=== PATIENT | female | born 1995 | race Caucasian/White ===

== ENCOUNTER 2025-05-27 17:48 | Observation (INO) | payer BC, SELFPAY ==
[2025-05-27 17:49] VITALS: BP 131/84; PULSE 73; RESP 18; TEMP 36.6; O2SAT 98
--- NOTE | 2025-05-27 18:15 | RT.EKG_ITS ---
APPROVED REPORT Exam: Resting ECG Reason for Exam: baseline screening Patient Location: E HR:75 bpm ECG Measurements Heart Rate 75 AXIS MN 149 P 45 QRSd 89 QRS 45 QT 373 T 18 QTc 416 Conclusion Sinus rhythm, rate 75 No interval abnormalities No STEMI No priors available for comparison
--- NOTE | 2025-05-27 18:16 | W.ED.GENAD ---
Discharge Plan Disposition Patient Disposition: Admit to [facility] Condition: Stable Discharge Details Clinical Impression: Acute pancreatitis Primary Care Provider: Harinder Stallworth ED Provider: Omi Weber Home Meds and New Rx's Prescriptions: No Action estradiol 1 mg tablet 1 mg PO DAILY Rx Instructions: off 1 week; repeat cycle meloxicam 15 mg tablet 15 mg PO DAILY methocarbamol 500 mg tablet 500 mg PO TID HPI General Date/Time Provider Initiated Documentation: 05/27/25 18:02. HPI Narrative: 29 year-old female presents to ED today by POV/ambulating with her boyfriend with a chief complaint of epigastric abdominal pain with onset last night, worsening today, was at [facility] til 1 pm- went home for a couple hours but pain getting worse. Quality described as severe pain and like a weight on her epigastric area and lower ribs, pain with deep breathing- sharp, no radiation to vomiting- does have nausea, denies black/bloody diarrhea or complete constipation, endorses mild SOB, denies chest pain, denies dizziness or fever. Severity is described as severe. Palliating factors include nothing specific attempted. Provoking factors include nothing specific. Events leading up to the incident/Associated Symptoms: Patient denies history of abdominal surgical procedures. Patient not anticoagulated. Related Data Home Medications ?Medication ?Instructions ?Recorded ?Confirmed estradiol 1 mg tablet 1 mg PO DAILY 05/27/25 05/27/25 meloxicam 15 mg tablet 15 mg PO DAILY 05/27/25 05/27/25 methocarbamol 500 mg tablet 500 mg PO TID 05/27/25 05/27/25 Allergies Allergy/AdvReac Type Severity Reaction Status Date / Time No Known Allergies Allergy Unverified 05/27/25 17:55 General Stated Complaint: Abd Prob OMARI: 3 Review of Systems All systems reviewed & are unremarkable except as noted in HPI and below Exam Narrative Exam Narrative: GENERAL APPEARANCE: Well-nourished, non-toxic, awake and alert, atraumatic, moderate acute distress. SKIN: Warm, pink, dry, intact, without rashes/lesions/ulcerations. HEAD: Normocephalic, atraumatic, normal hair distribution for gender/age. EYES: Normal conjunctiva, no exudates on lids/lashes. ENT: Nares patent, no circumoral cyanosis, no facial swelling NECK: Supple, trachea midline, painless cervical ROM. LUNGS/CHEST: Lungs CTA bilaterally- no rhonchi/rales/wheezes diffusely, non-labored respirations, normal A/P diameter, symmetrical expansion, no chest wall deformity, mild tenderness to bilat lower ribs without crepitus HEART (CV/PV): Regular rate and rhythm without murmur, no peripheral edema, no JVD. ABDOMEN: Soft, non-distended, no guarding, epigastric tenderness with + Mcmullen's sign, LUQ tenderness, no CVA tenderness to percussion bilaterally. MSK: Normal ROM, no swelling/deformity to bilateral UEs or LEs, moving all extremities without weakness, no cyanosis, spine midline without tenderness, normal curvature. NEURO: Mental Status AAOx4 - alert to person, place, time, events No facial droop, no forehead involvement. Motor: No focal weakness - strength 5/5 in bilateral UEs and LEs, proximal and distal, symmetric. Sensory: sensation intact to light touch globally. Gait normal: patient ambulated without ataxia into ED room. PSYCH: euthymic, cooperative, pleasant, appropriate speech Course Vital Signs Vital signs: Vital Signs Temperature 36.6 C 05/27/25 17:49 Pulse 73 05/27/25 17:49 Respiratory Rate 18 05/27/25 17:49 Blood Pressure 131/84 05/27/25 17:49 Pulse Oximetry 98 05/27/25 17:49 Temperature 36.6 C 05/27/25 17:49 Pulse 73 05/27/25 17:49 Respiratory Rate 18 05/27/25 17:49 Blood Pressure 131/84 05/27/25 17:49 Pulse Oximetry 98 05/27/25 17:49 Pain Level 8 05/27/25 17:49 Medical Decision Making This dictation utilizes [id number] dictation software and may contain unedited grammatical errors. 29 year-old female presents to ED today by POV/ambulating with her boyfriend with a chief complaint of epigastric abdominal pain with onset last night, worsening today, was at [facility] til 1 pm- went home for a couple hours but pain getting worse. Quality described as severe pain and like a weight on her epigastric area and lower ribs, pain with deep breathing- sharp, no radiation to vomiting- does have nausea, denies black/bloody diarrhea or complete constipation, endorses mild SOB, denies chest pain, denies dizziness or fever. Severity is described as severe. Palliating factors include nothing specific attempted. Provoking factors include nothing specific. Events leading up to the incident/Associated Symptoms: Patient denies history of abdominal surgical procedures. Patients' medical history: Cervicalgia, anxiety, complex regional pain syndrome. Family and social history: Noncontributory. Pertinent exam findings / vital signs include epigastric tenderness, positive Mcmullen sign, left upper quadrant tenderness, no Rovsing's, no CVA tenderness to percussion bilaterally, benign cardiopulmonary exam with pleuritic tenderness in bilateral lower distal ribs without crepitus or flail segment, nontoxic and afebrile Differential / pathologies of concern include biliary colic, pancreatitis, cholangitis, choledocho cystitis, PE, enteritis, gastritis. Diagnostic studies of: - CBC, CMP, D-dimer, lactate, magnesium, troponin, lipase. - CBC shows no leukocytosis, no anemia - Lactate -1.5 - D-dimer negative at 427 - CMP is unremarkable, bilirubin at 1.4 - Magnesium within normal limits - Lipase is acutely elevated to >3000 from a normal value earlier today Interventions of: - 15 mg IVP ketorolac, 4 mg IVP Zofran, 1 g IV Tylenol, 500 mL IVF NS, 0.5 mg IV hydromorphone every 4 hours as needed. - Discussed with Hospitalist Dr. Steiner- agrees for admission at 2049. Dr. Bonner did POCUS of RUQ- does not see any large obstructing stones. Updated General Surgery on-call Dr. Soler of admitted patient likely needing surgical consult at 2051. ED Course/Assessment/Plan: 29-year-old female presents with epigastric pain seen at [facility] with a negative CT they recommend MRCP tomorrow, she was sent home after GI cocktail treatment with worsening pain, her lipase was negative earlier today but is now greater than her upper limit of normal at 3000, POCUS was performed shows no large obstructing stone and her LFTs are normal, she has a possible gallstone pancreatitis in the setting of a definitive acute pancreatitis, likely needs monitoring clear fluid diet and official ultrasound tomorrow morning with possible MRCP tomorrow morning, surgery practice is aware patient admitted to hospitalist service, has received pain control here in the ED and vitals are stable. Disposition of Acute Pancreatitis. Patient verbalized understanding of the plan and return to ED criteria and engaged in shared decision making. Medical Records Medical records reviewed: Yes I reviewed the patient's medical records. Medical records narrative: Reviewed [facility] studies from earlier today, she had a negative CT but they do recommend an MRCP tomorrow, she had some dilatation of the pancreatic duct but no stones were seen. Lab Data Lab results reviewed: Yes I reviewed the patient's lab results. Labs: Laboratory Tests Range/Units 05/27/25 05/27/25 18:58 19:18 WBC (4.4-10.8) 10^3/uL 5.33 RBC (3.93-5.22) 10^6/uL 3.93 Hgb (11.2-15.7) g/dL 12.7 Hct (36.0-46.0) % 37.3 MCV (80-95) fL 95 MCH (27.0-33.0) pg 32.3 MCHC (32.0-36.0) % 34.0 RDW (11.7-14.6) % 12.3 Plt Count (130-400) 10^3/uL 186 MPV (8.0-11.0) fL 9.6 Immature Gran % % 0.2 Neutrophils % % 67.0 Lymphocytes % % 23.6 Monocytes % % 5.6 Eosinophils % % 2.8 Basophils % % 0.8 Nucleated RBC % (0.0-0.3) % 0.0 Absolute Neutrophils (1.2-6.7) 10^3/uL 3.57 Absolute Lymphocytes (1.2-3.4) 10^3/uL 1.26 Absolute Monocytes (0.1-0.8) 10^3/uL 0.30 Absolute Eosinophils (0.0-0.7) 10^3/uL 0.15 Absolute Basophils (0.0-0.2) 10^3/uL 0.04 D-Dimer (<500) ng/mlFEU 427 VBG Lactate (<or=2.0) mmol/L 1.5 Sodium (136-145) mmol/L 140 Potassium (3.5-5.1) mmol/L 3.7 Chloride (98-107) mmol/L 105 Carbon Dioxide (21.0-32.0) mmol/L 27.3 Anion Gap (3-11) mmol/L 7.7 BUN (7-18) mg/dL 7 Creatinine (0.55-1.02) mg/dL 0.7 Est GFR (CKD-EPI 2020) (mL/min/1.73m2) 118.51 Glucose (74-106) mg/dL 98 Calcium (8.5-10.1) mg/dL 8.6 Magnesium (1.8-2.4) mg/dL 1.9 Total Bilirubin (0.2-1.0) mg/dL 1.4 H AST (15-37) U/L 65 H ALT (14-59) U/L 33 Alkaline Phosphatase (46-116) U/L 60 Troponin I (<or=51) ng/L 4 Total Protein (6.4-8.2) g/dL 6.5 Albumin (3.4-5.0) g/dL 3.1 L Lipase (<78) U/L > 3000 H PFSH All Active Problems (Updated 05/27/25 @ 20:54 by MELISA Francis) Acute pancreatitis (Acute) Social History Smoking/Tobacco Use Status: Current every day Tobacco Type: e-cigarettes Smoking risk assessment performed?: Yes Alcohol Intake: current Alcohol Intake frequency: holidays/special occasions only Substance use type: does not use Housing: house Do you feel safe at home: Yes Do you feel safe in your relationship?: Yes
[2025-05-27 19:11] LABS: Abs Immature Grans 0.01 10^3/uL (0.0-0.06); HCT 37.3 % (36.0-46.0); HGB 12.7 g/dL (11.2-15.7); Immature Grans % 0.2 %; MCH 32.3 pg (27.0-33.0); MCHC 34.0 % (32.0-36.0); MCV 95 fL (80-95); MPV 9.6 fL (8.0-11.0); Platelet Count 186 10^3/uL (130-400); RBC 3.93 10^6/uL (3.93-5.22); RDW 12.3 % (11.7-14.6); RDW-SD 42.9 fL; WBC 5.33 10^3/uL (4.4-10.8)
[2025-05-27] MEDS: Ketorolac 15 MG/ML VIAL IVP (19:13)
[2025-05-27] MEDS: Ondansetron 4 MG/2 ML VIAL IVP (19:15)
[2025-05-27] MEDS: ACETAMINOPHEN 1,000 MG/100 ML BAG 400 MG IVPB (19:16)
[2025-05-27] MEDS: Normal Saline 500 ML IV (19:20)
[2025-05-27 19:33] VITALS: BP 131/84; PULSE 73; RESP 18; TEMP 36.6; O2SAT 98
[2025-05-27 19:34] LABS: ALT 33 U/L (14-59); AST 65 U/L (15-37); Albumin 3.1 g/dL (3.4-5.0); Alkaline Phosphatase 60 U/L (46-116); Anion Gap 7.7 mmol/L (3-11); BUN 7 mg/dL (7-18); Bilirubin, Total 1.4 mg/dL (0.2-1.0); CO2 27.3 mmol/L (21.0-32.0); Calcium 8.6 mg/dL (8.5-10.1); Chloride 105 mmol/L (98-107); Estimated GFR 118.51 (mL/min/1.73m2); Glucose 98 mg/dL (74-106); Magnesium 1.9 mg/dL (1.8-2.4); Potassium 3.7 mmol/L (3.5-5.1); Sodium 140 mmol/L (136-145); Total Protein 6.5 g/dL (6.4-8.2); Troponin I 4 ng/L (<or=51)
[2025-05-27 19:35] LABS: Lipase > 3000 U/L (<78)
[2025-05-27 19:53] LABS: D-Dimer 427 ng/mlFEU (<500)
[2025-05-27] MEDS: HYDROmorphone 2 MG/ML SYR 0.5 MG IVP (20:24)
[2025-05-27 21:10] LABS: Glucose 100 mg/dL (Negative)
[2025-05-27 21:37] VITALS: RESP 18
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
[2025-05-27 21:49] VITALS: BP 128/98; PULSE 69; RESP 16; RESP 18; TEMP 36.1; O2SAT 98
--- NOTE | 2025-05-27 22:05 | W.PM.HP.N ---
Date of service: 05/27/25 Time of Service: 22:05 Assessment and Plan Assessment and plan (1) Acute pancreatitis: Status: Acute Assessment and plan: Patient will be admitted for IV resuscitation, pain control, and n.p.o. status. CBC CMP lipase and triglyceride levels have been ordered for the a.m. Nutrition consult has been ordered for the a.m. MRCP has also been ordered for the a.m. Considering the fact the patient has been on estradiol I will put her on Lovenox for DVT prophylaxis. History of Present Illness History of Present Illness Chief Complaint: RUQ pain Narrative: This is a 29-year-old female with a very little past medical history who was seen at [facility] ED this morning for abdominal pain. At that time a CT was done which did not show any acute pathology but there was a recommendation for an MRCP in the outpatient setting. I have reviewed those labs from that admission and at the time of her discharge her lipase was 17. Patient continued to have abdominal pain and came into the ED for further evaluation and treatment. Workup in the ED was indicative of pancreatitis with a lipase of over 3000. Considering the fact that the patient completed IV pain meds as well as continued to be anorexic we recommended admission to which the patient agreed. No further imaging was done in the ED. Patient's labs were fairly benign otherwise. Patient denies any history of alcohol use. Review of Systems All systems reviewed & are unremarkable except as noted in HPI and below PFSH All Active Problems (Updated 05/27/25 @ 20:54 by MELISA Francis) Acute pancreatitis (Acute) Social History Smoking/Tobacco Use Status: Current every day Tobacco Type: e-cigarettes Smoking risk assessment performed?: Yes Alcohol Intake: current Alcohol Intake frequency: holidays/special occasions only Substance use type: does not use Housing: house Do you feel safe at home: Yes Do you feel safe in your relationship?: Yes Meds Allergies and Home Medications Allergies Allergy/AdvReac Type Severity Reaction Status Date / Time No Known Allergies Allergy Unverified 05/27/25 17:55 Home Medications ?Medication ?Instructions ?Recorded ?Confirmed ?Type estradiol 1 mg tablet 1 mg PO DAILY 05/27/25 05/27/25 History meloxicam 15 mg tablet 15 mg PO DAILY 05/27/25 05/27/25 History methocarbamol 500 mg tablet 500 mg PO TID 05/27/25 05/27/25 History Exam Narrative Exam Narrative: HEENT-normocephalic atraumatic mucous memories moist oropharynx is clear neck- No lymphadenopathy no JVD no thyromegaly. Cardiovascular-regular rate and rhythm no murmur rubs gallops Lungs-clear to auscultation bilaterally good air exchange Abdomen-tenderness to palpation in the right upper quadrant but no hepatosplenomegaly Extremities-no sinus clubbing or edema bilaterally Neurologic-cranial nerves II through XII intact as tested Psych-alert and oriented x 3 Results Labs 05/27/25 18:58 05/27/25 18:58 Labs: Laboratory Results - last 24 hr 05/27/25 05/27/25 05/27/25 18:58 19:18 21:02 WBC 5.33 RBC 3.93 Hgb 12.7 Hct 37.3 MCV 95 MCH 32.3 MCHC 34.0 RDW 12.3 Plt Count 186 MPV 9.6 Immature Gran % 0.2 Neutrophils % 67.0 Lymphocytes % 23.6 Monocytes % 5.6 Eosinophils % 2.8 Basophils % 0.8 Nucleated RBC % 0.0 Absolute Neutrophils 3.57 Absolute Lymphocytes 1.26 Absolute Monocytes 0.30 Absolute Eosinophils 0.15 Absolute Basophils 0.04 D-Dimer 427 VBG Lactate 1.5 Sodium 140 Potassium 3.7 Chloride 105 Carbon Dioxide 27.3 Anion Gap 7.7 BUN 7 Creatinine 0.7 Est GFR (CKD-EPI 2020) 118.51 Glucose 98 Calcium 8.6 Magnesium 1.9 Total Bilirubin 1.4 H AST 65 H ALT 33 Alkaline Phosphatase 60 Troponin I 4 Total Protein 6.5 Albumin 3.1 L Lipase > 3000 H Urine Color Yellow Urine Clarity Clear Urine pH 5.5 Ur Specific [place] 1.020 Urine Protein Negative Urine Ketones Negative Urine Blood Negative Urine Nitrite Negative Urine Bilirubin Moderate H Urine Urobilinogen >=8.0 H Ur Leukocyte Esterase Negative Urine Glucose 100 H Last Vital Signs Temp 36.6 C 05/27/25 19:33 Pulse 73 05/27/25 19:33 Resp 18 05/27/25 21:37 BP 131/84 05/27/25 19:33 Pulse Ox 98 05/27/25 19:33 Time Spent Time spent with Patient: 40-54 minutes Time was spent: preparing to see the patient(eg.review tests), obtaining and/or reviewing separately otained hiistory, ordering medications,tests, procedures, referring, communicating with other health dog daycare provider, indepentently interpreting results, counseling the patient and care coordination
[2025-05-27] MEDS: Lactated Ringers 1,000 ML 150 ML IV (22:31)
--- NOTE | 2025-05-28 | DI.MRI_ITS ---
Exam(s) MR ABDOMEN WO EXAM: MR ABDOMEN WO CLINICAL HISTORY: pancreatitis TECHNIQUE: Multiplanar multisequence MRI of the Abdomen was performed. COMPARISON: No exams were available for comparison FINDINGS: Lung bases: There is a tiny right pleural effusion and right basilar atelectasis. Liver: There is no evidence of a suspicious hepatic mass. No significant biliary ductal dilatation is present. Pancreas: There is no evidence of a pancreatic mass or a focal peripancreatic fluid collection. No pancreatic ductal dilatation is seen. There is mild stranding seen in the peripancreatic tissues around the body and tail. Gallbladder and Bile Ducts: There is no cholelithiasis or biliary ductal dilatation. There is pericholecystic fluid present. There is also mild gallbladder wall thickening. The gallbladder measures 4.1 cm in diameter. Adrenals: Unremarkable. Kidneys: There is a simple cyst in the superior pole of the left kidney. No follow-up is recommended. No suspicious renal masses or hydronephrosis is present. Spleen: Unremarkable. Bowel: There is no evidence of bowel obstruction or bowel wall thickening. Aorta: There is no evidence of an abdominal aortic aneurysm. Soft Tissues: Unremarkable. Bone: Unremarkable. Lymph Nodes: Unremarkable. IMPRESSION: 1. Mild inflammatory stranding seen around the body and tail of the pancreas which can be seen with pancreatitis. There is no focal fluid collection to suggest an abscess. 2. Mild gallbladder distension, pericholecystic fluid and gallbladder wall thickening. No cholelithiasis or biliary ductal dilatation. This can be seen with acalculous cholecystitis. 3. Tiny right pleural effusion and right basilar atelectasis. DATA REPOSITORY:
[2025-05-28] MEDS: HYDROmorphone 2 MG/ML SYR 0.5 MG IVP (00:33)
[2025-05-28] MEDS: Acetaminophen 325 MG TAB PO ×2 (04:56→09:32)
[2025-05-28] MEDS: HYDROmorphone 2 MG/ML SYR 1 MG IVP ×4 (04:57→22:21)
[2025-05-28] MEDS: Lactated Ringers 1,000 ML 150 ML IV (06:05)
[2025-05-28 06:30] LABS: Abs Immature Grans 0.01 10^3/uL (0.0-0.06); HCT 34.1 % (36.0-46.0); HGB 11.5 g/dL (11.2-15.7); Immature Grans % 0.3 %; MCH 32.0 pg (27.0-33.0); MCHC 33.7 % (32.0-36.0); MCV 95 fL (80-95); MPV 9.9 fL (8.0-11.0); Platelet Count 170 10^3/uL (130-400); RBC 3.59 10^6/uL (3.93-5.22); RDW 12.4 % (11.7-14.6); RDW-SD 43.1 fL; WBC 3.83 10^3/uL (4.4-10.8)
[2025-05-28 06:52] LABS: ALT 45 U/L (14-59); AST 65 U/L (15-37); Albumin 2.6 g/dL (3.4-5.0); Alkaline Phosphatase 59 U/L (46-116); Anion Gap 5.1 mmol/L (3-11); BUN 7 mg/dL (7-18); Bilirubin, Total 0.6 mg/dL (0.2-1.0); CO2 27.9 mmol/L (21.0-32.0); Calcium 8.1 mg/dL (8.5-10.1); Chloride 107 mmol/L (98-107); Estimated GFR 118.51 (mL/min/1.73m2); Glucose 102 mg/dL (74-106); Potassium 4.0 mmol/L (3.5-5.1); Sodium 140 mmol/L (136-145); Total Protein 5.6 g/dL (6.4-8.2)
[2025-05-28 06:53] LABS: Lipase 1400 U/L (<78)
[2025-05-28 07:07] LABS: Triglyceride 54 mg/dL (<150)
[2025-05-28 07:11] VITALS: BP 102/75; PULSE 58; RESP 17; TEMP 36.4; O2SAT 96
--- NOTE | 2025-05-28 07:44 | INITIAL_ITS ---
Date of service: 05/28/25 Time of Service: 07:44 Care Management Initial Assmt Initial Assessment Reason for Hospitalization: pancreatitis Functional Status/Living Situation Patient Presentation: Carmina presented to the ED yesterday afternoon with c/o abdominal pain. She was seen at [facility] ER prior in the day, but came to [facility] when her pain was getting worse. She c/o nausea, and sharp pain in her epigastric area with a deep breathing. She is scheduled for MRCP today. Carmina was napping when CM first entered the room. Her partner, Cheko, was present and awake. He was very pleasant, and though our voices were kept low, Carmina awoke. She stated that she is still not feeling great, but would like to eat. This was passed along to her provider who is waiting for surgery's input before allowing Carmina to eat. Carmina was informed of this. Town of Residence: [place] Resides with: Other (partner Cheko and 5 children) Natural Supports: Cheko is Carmina's main support Employment Status: Employed (works for [employer] - will require a work note) Instrumental Activities of Daily Living (ADLs): Independent Medications Medication Management: No Issues/Barriers identified Advance Directives Advance Directives: Do you have an Advance Directive: N Today, 03:53 AD On File at [facility]: N 05/27/25, 17:59 Date Asked 05/27/25 05/27/25, 17:59 AD Date Reviewed COLST On File at [facility] COLST Date Scanned Code Status Resuscitation Status Full Code Portal Pt does not currently have a portal and education provided: No Insurance Coverage/Financial Issues Insurance: has BC/BS through her work place, but does not have her card with her. She was given info from access on admission to submit her insurance after discharge. Care Team Visit Care Team Role Provider Type Telly Bond MD MD [facility] STAFF PHYSICIAN Harinder Stallworth DO Primary Care Provider NON-[facility] STAFF PHYSICIAN Michelle Hirsch RDN, [facility] Other Providers WASTE PAPER HAMMERMILL OPERATORRADHA Hinds RDN Other Providers WASTE PAPER HAMMERMILL OPERATOR MELISA Francis Emergency Provider PHYSICIANS SUSTAINABILITY SPECIALIST Hal Steiner MD Admit Provider [facility] STAFF PHYSICIAN Attending Provider Discharge Potential Discharge Needs: PCP F/U Appt Anticipated Barriers to Discharge: None Identified Patient/Family Education Needs: Review discharge instructions, discuss Ask Me Three Transportation: Private vehicle Plan: Carmina will be discharged home with no new services once she is medically stable. She will f/u with her PCP and continue per her plan of care. CM will continue to follow. Social Determinants of Health Screening Social Determinants of health last assessed in clinic: 05/28/25 Will the Patient Participate in the Screening?: Yes Do you worry about having a steady place to live?: no Problems where you live: no known problems In the past 12 months, have you had to go without electric, gas, oil or water in your home?: no 1. Within the past 12 months, we worried whether our food would run out before we got money to buy more.: Don't know/refused 2. Within the past 12 months, the food we bought just didn't last and we didn't have money to get more.: Don't know/refused Has lack of transportation kept you from medical appointments or from doing things needed for daily living?: no Has anyone in your life made you feel unsafe or unsupported?: no How hard is it for you to pay for the very basics like food, housing, medical care, and heating? Would you say it is:: Somewhat hard Do you want help finding or keeping work or a job?: I do not need or want help If for any reason you need help with day-to-day activities such as bathing, preparing meals, shopping, managing finances, etc., do you get the help you need?: I don?t need any help How often do you feel lonely or isolated from those around you?: Never Do you speak a language other than Sinhala at home?: No Does the patient want assistance with any of the above?: No Health Related Social Needs Health related social needs: problems related to housing/economic circumstances (Z59.89) Health related social needs details: Pt visits food shelf as necessary PFSH All Active Problems (Updated 05/27/25 @ 20:54 by MELISA Francis) Acute pancreatitis (Acute) Social History Smoking/Tobacco Use Status: Current every day Tobacco Type: e-cigarettes Smoking risk assessment performed?: Yes Alcohol Intake: current Alcohol Intake frequency: holidays/special occasions only Substance use type: does not use Housing: house Do you feel safe at home: Yes Do you feel safe in your relationship?: Yes
--- NOTE | 2025-05-28 11:00 | PHA.REVIEW2 ---
Pharmacy Admission Review Admission Clinical Review Admission Pharmacy Review: Acute pancreatitis (Acute) No Known Allergies Allergy (Unverified 05/27/25 17:55) Resuscitation Status Full Code Height 5 ft 6 in Weight 98.838 kg Pharmacy Admission Review Renal Dosing Renal Dosing: BUN 7 mg/dL (7-18) 05/28/25 06:00 Creatinine 0.7 mg/dL (0.55-1.02) 05/28/25 06:00 Medications needing adjustments: Reviewed (CrCl 138.08 mL/min) List of meds needing interventions: Current medications are okay Anticoagulation Anticoagulation: Hgb 11.5 g/dL (11.2-15.7) 05/28/25 06:00 Hct 34.1 % (36.0-46.0) L 05/28/25 06:00 Plt Count 170 10^3/uL (130-400) 05/28/25 06:00 Creatinine 0.7 mg/dL (0.55-1.02) 05/28/25 06:00 DVT Prophylaxis: Intervened (enoxaparin 40mg daily was ordered because patient takes estradiol at home per H+P. Confirmed with nurse patient doesn't actually take at home - spoke with provider who said enoxaparin not needed. Discontinued order) Opiate Usage Evaluate Pain Scale/Pains Meds: Reviewed (hydromorphone 1mg IVP q4h - 2mg/24hrs) Scheduled Bowel Reg ordered if on Opiates?: No (PRN Miralax/docusate) Relevant Labs Relevant Labs: Sodium 140 mmol/L (136-145) 05/28/25 06:00 Potassium 4.0 mmol/L (3.5-5.1) 05/28/25 06:00 Chloride 107 mmol/L (98-107) 05/28/25 06:00 Magnesium 1.9 mg/dL (1.8-2.4) 05/27/25 18:58 Electrolytes, C-Reactive P, ESR: Reviewed (WBC 3.83 (decreased), total bilirubin 0.6 (decreased from 1.4)) Cardiac Review Cardiac Review: Troponin I 4 ng/L (<or=51) 05/27/25 18:58 BP, HR, EF%: Reviewed (BP WNL, HR 58) QTc Review QTc: Reviewed (416 from 05/27/25) IV to PO Switch IV Medications: Reviewed (hydromorphone) Home Meds Home Med List reviewed: Intervened Relevent Home Meds Not ordered & why?: meloxicam, Valnea and methocarbamol (PRN) - provider looking into it, waiting to hear back Recently filled for meloxicam 7.5mg daily but home med list had 15mg daily. Had nurse confirm with patient, per patient they take 7.5mg daily - updated home med list Recently filled for Valnea (oral contraceptive) but was not on home med list. Had nurse confirm with patient, per patient they do take at home. Added to home med list - provider aware Nurse confirmed patient does not take estradiol at home - removed from home med list, provider aware Current Meds Current Medication Order Review: Intervened Comments: Added IV access order set
--- NOTE | 2025-05-28 15:18 | SCONE_ITS ---
Date of service: 05/28/25 Time of Service: 15:19 Assessment and Plan Assessment and plan (1) Acute pancreatitis: Status: Acute Assessment and plan: Patient is a 29-year-old female who presented to the ED with nausea and abdominal pain since Tuesday. She denies any previous pain like this. She was admitted to the hospitalist service with concern for pancreatitis. She subsequently underwent an MRCP which showed concern for pancreatitis as well as potential acalculous cholecystitis. On exam she is afebrile and hemodynamically stable. Her abdomen is tender to palpation mostly in the epigastric area and left upper quadrant. She has no evidence of rebound or guarding or diffuse peritonitis. Her laboratory findings are significant for an elevated lipase consistent with pancreatitis. This finding as well as her imaging findings were discussed with her today. The likelihood of acalculous cholecystitis is low given her presentation. She had no evidence of gallstones on imaging performed so far however she has not had a formal right upper quadrant ultrasound. Given the concern for potential gallstone pancreatitis would recommend a formal right upper quadrant ultrasound to assess for cholelithiasis. This could be obtained as an outpatient. Also consideration of pancreatitis in the setting of GLP-1 use however it seems as though she has not used a GLP-1 in over a month. From a surgical standpoint it is appropriate to advance her diet as tolerated. Would recommend outpatient right upper quadrant ultrasound and further discussion regarding cholecystectomy in the setting of potential gallstone pancreatitis. History of Present Illness Narrative: Patient is a 29-year-old female who presents emergency department with abdominal pain. She notes that since Tuesday she has had ongoing epigastric abdominal pain. She states that this pain then radiated to the left side of her abdomen. She notes that the pain is in a bandlike fashion around this center of her abdomen at this point. She endorses some nausea but denies any vomiting. She states she has been having normal bowel movements. She denies any previous pain like this before. She denies any surgery on her abdomen. She states that she was seen at [facility] and it was recommended that she undergo an MRCP. She states that the pain became worse so she presented here for further evaluation. She was admitted to the hospital service overnight for observation. He does note that her pain has improved with some pain medications since admission. Also of note she states that she has within the last month or so used Ozempic that she obtained from someone she knows. She states that the prescription was cost prohibitive for her otherwise. Review of Systems Constitutional Constitutional: Denies chills and Denies weakness Eyes Eyes: Denies change in vision ENT Ears, Nose, Mouth, and Throat: Denies dizziness Cardiovascular Cardiovascular: Denies chest pain and Denies dyspnea Respiratory Respiratory: Denies dyspnea Gastrointestinal Gastrointestinal: Denies vomiting Genitourinary Genitourinary: Denies dysuria Musculoskeletal Musculoskeletal: Denies arthralgias, Denies muscle weakness and Denies numbness Neurologic Neurologic: Denies dizziness, Denies numbness and Denies weakness PFSH All Active Problems (Updated 05/27/25 @ 20:54 by MELISA Francis) Acute pancreatitis (Acute) Social History Smoking/Tobacco Use Status: Current every day Tobacco Type: e-cigarettes Smoking risk assessment performed?: Yes Alcohol Intake: current Alcohol Intake frequency: holidays/special occasions only Substance use type: does not use Housing: house Do you feel safe at home: Yes Do you feel safe in your relationship?: Yes Exam Narrative Exam Narrative: General: Well appearing, no acute distress. Skin: Good turgor, no visible rashes or lesion HEENT: Normocephalic, atraumatic CV: Regular rate Lungs: Bilateral equal chest rise, non-labored breathing Abdomen: Soft, non-distended, no masses or organomegaly, epigastric and LUQ tenderness to palpation, no rebound or guarding Extremities: Warm, well perfused Neurologic: No focal deficits Psychiatric: Alert and oriented, normal mood and affect Results Last Vital Signs Temp 36.4 C L 05/28/25 07:11 Pulse 58 L 05/28/25 07:11 Resp 17 05/28/25 07:11 BP 102/75 05/28/25 07:11 Pulse Ox 96 05/28/25 07:11 Labs 05/28/25 06:00 05/28/25 06:00 Labs: Laboratory Results - last 24 hr 05/27/25 05/27/25 05/27/25 18:58 19:18 21:02 WBC 5.33 RBC 3.93 Hgb 12.7 Hct 37.3 MCV 95 MCH 32.3 MCHC 34.0 RDW 12.3 Plt Count 186 MPV 9.6 Immature Gran % 0.2 Neutrophils % 67.0 Lymphocytes % 23.6 Monocytes % 5.6 Eosinophils % 2.8 Basophils % 0.8 Nucleated RBC % 0.0 Absolute Neutrophils 3.57 Absolute Lymphocytes 1.26 Absolute Monocytes 0.30 Absolute Eosinophils 0.15 Absolute Basophils 0.04 D-Dimer 427 VBG Lactate 1.5 Sodium 140 Potassium 3.7 Chloride 105 Carbon Dioxide 27.3 Anion Gap 7.7 BUN 7 Creatinine 0.7 Est GFR (CKD-EPI 2020) 118.51 Glucose 98 Calcium 8.6 Magnesium 1.9 Total Bilirubin 1.4 H AST 65 H ALT 33 Alkaline Phosphatase 60 Troponin I 4 Total Protein 6.5 Albumin 3.1 L Triglycerides Lipase > 3000 H Urine Color Yellow Urine Clarity Clear Urine pH 5.5 Ur Specific [place] 1.020 Urine Protein Negative Urine Ketones Negative Urine Blood Negative Urine Nitrite Negative Urine Bilirubin Moderate H Urine Urobilinogen >=8.0 H Ur Leukocyte Esterase Negative Urine Glucose 100 H 05/28/25 06:00 WBC 3.83 L RBC 3.59 L Hgb 11.5 Hct 34.1 L MCV 95 MCH 32.0 MCHC 33.7 RDW 12.4 Plt Count 170 MPV 9.9 Immature Gran % 0.3 Neutrophils % 52.0 Lymphocytes % 38.6 Monocytes % 6.3 Eosinophils % 2.3 Basophils % 0.5 Nucleated RBC % 0.0 Absolute Neutrophils 1.99 Absolute Lymphocytes 1.48 Absolute Monocytes 0.24 Absolute Eosinophils 0.09 Absolute Basophils 0.02 D-Dimer VBG Lactate Sodium 140 Potassium 4.0 Chloride 107 Carbon Dioxide 27.9 Anion Gap 5.1 BUN 7 Creatinine 0.7 Est GFR (CKD-EPI 2020) 118.51 Glucose 102 Calcium 8.1 L Magnesium Total Bilirubin 0.6 AST 65 H ALT 45 Alkaline Phosphatase 59 Troponin I Total Protein 5.6 L Albumin 2.6 L Triglycerides 54 Lipase 1400 H Urine Color Urine Clarity Urine pH Ur Specific [place] Urine Protein Urine Ketones Urine Blood Urine Nitrite Urine Bilirubin Urine Urobilinogen Ur Leukocyte Esterase Urine Glucose Imaging Imaging Studies: MCRP reviewed
--- NOTE | 2025-05-28 16:24 | PGE_ITS ---
Date of Service Date of service: 05/28/25 Time of Service: 16:24 Assessment and Plan Assessment and plan (1) Acute pancreatitis: Status: Acute Assessment and plan: -patient admitted for pain control and IV fluids -triglycerides not elevated, MRCP showed possible acalculous cholecystitis, though unlikely given non-toxic appearance. apprecaite Gen Surg consultation -was NPO, has been slowly advancing diet with minimal tolerance of liquids, continue to advance as tolerated -continue PRN IV dilaudid for pain Subjective Subjective Interval history since last seen: Patient states that she is feeling better but continues to have difficultly with PO intake. Otherwise she has no complaints or concerns at this time. Exam Narrative Exam Narrative: fatigued appearing female in no acute distress, AOx4, heart RRR, lungs CTAB, abdomen with mild tenderness to LUQ Objective Last Vital Signs Temp 97.5 F L 05/28/25 07:11 Pulse 58 L 05/28/25 07:11 Resp 17 05/28/25 07:11 BP 102/75 05/28/25 07:11 Pulse Ox 96 05/28/25 07:11 Laboratory Results - last 24 hr 05/27/25 05/27/25 05/27/25 18:58 19:18 21:02 WBC 5.33 RBC 3.93 Hgb 12.7 Hct 37.3 MCV 95 MCH 32.3 MCHC 34.0 RDW 12.3 Plt Count 186 MPV 9.6 Immature Gran % 0.2 Neutrophils % 67.0 Lymphocytes % 23.6 Monocytes % 5.6 Eosinophils % 2.8 Basophils % 0.8 Nucleated RBC % 0.0 Absolute Neutrophils 3.57 Absolute Lymphocytes 1.26 Absolute Monocytes 0.30 Absolute Eosinophils 0.15 Absolute Basophils 0.04 D-Dimer 427 VBG Lactate 1.5 Sodium 140 Potassium 3.7 Chloride 105 Carbon Dioxide 27.3 Anion Gap 7.7 BUN 7 Creatinine 0.7 Est GFR (CKD-EPI 2020) 118.51 Glucose 98 Calcium 8.6 Magnesium 1.9 Total Bilirubin 1.4 H AST 65 H ALT 33 Alkaline Phosphatase 60 Troponin I 4 Total Protein 6.5 Albumin 3.1 L Triglycerides Lipase > 3000 H Urine Color Yellow Urine Clarity Clear Urine pH 5.5 Ur Specific [place] 1.020 Urine Protein Negative Urine Ketones Negative Urine Blood Negative Urine Nitrite Negative Urine Bilirubin Moderate H Urine Urobilinogen >=8.0 H Ur Leukocyte Esterase Negative Urine Glucose 100 H 05/28/25 06:00 WBC 3.83 L RBC 3.59 L Hgb 11.5 Hct 34.1 L MCV 95 MCH 32.0 MCHC 33.7 RDW 12.4 Plt Count 170 MPV 9.9 Immature Gran % 0.3 Neutrophils % 52.0 Lymphocytes % 38.6 Monocytes % 6.3 Eosinophils % 2.3 Basophils % 0.5 Nucleated RBC % 0.0 Absolute Neutrophils 1.99 Absolute Lymphocytes 1.48 Absolute Monocytes 0.24 Absolute Eosinophils 0.09 Absolute Basophils 0.02 D-Dimer VBG Lactate Sodium 140 Potassium 4.0 Chloride 107 Carbon Dioxide 27.9 Anion Gap 5.1 BUN 7 Creatinine 0.7 Est GFR (CKD-EPI 2020) 118.51 Glucose 102 Calcium 8.1 L Magnesium Total Bilirubin 0.6 AST 65 H ALT 45 Alkaline Phosphatase 59 Troponin I Total Protein 5.6 L Albumin 2.6 L Triglycerides 54 Lipase 1400 H Urine Color Urine Clarity Urine pH Ur Specific [place] Urine Protein Urine Ketones Urine Blood Urine Nitrite Urine Bilirubin Urine Urobilinogen Ur Leukocyte Esterase Urine Glucose Time Spent with Patient Time Spent with Patient: >50 minutes Time was spent: preparing to see the patient(eg.review tests), obtaining and/or reviewing separately otained hiistory, ordering medications,tests, procedures, referring, communicating with other health child caregiver private home, indepentently interpreting results, counseling the patient and care coordination
[2025-05-28] MEDS: Lactated Ringers 1,000 ML 100 ML IV (17:58)
[2025-05-28] MEDS: Ondansetron 4 MG/2 ML VIAL IVP (17:59)
[2025-05-28 19:00] VITALS: BP 110/62; PULSE 77; RESP 16; TEMP 36.4; O2SAT 96
[2025-05-29] MEDS: HYDROmorphone 2 MG/ML SYR 1 MG IVP (04:45)
[2025-05-29] MEDS: Lactated Ringers 1,000 ML 100 ML IV (04:47)
[2025-05-29 08:20] VITALS: BP 106/66; PULSE 84; RESP 14; TEMP 36.6; O2SAT 95
--- NOTE | 2025-05-29 08:34 | CMDISCH_ITS ---
Date of service: 05/29/25 Time of Service: 08:34 LACE Index Scoring Tool Questions: Length of Stay (in days): 1 Was the patient admitted via the E.D.?: Yes E.D. Visits: 1 Answers: Total Score: 5 Risk of Readmission: Low Risk Care Management Discharge Plan Reason for Hospitalization: Acute Pancreatitis Discharge Plan: Carmina is discharged home via private vehicle with family. She will follow up with community providers and continue per her discharge plan of care. No new services are ordered prior to discharge. Patient/Family Education Needs: Review discharge instructions and plan to follow up after discharge. Discuss ask me three. SDOH Health Related Social Needs: Health related social needs house/econ circumstance Health related social needs details Pt visits food she lf as necessary Health related social needs details: Pt visits food shelf as necessary
[2025-05-29] MEDS: Ketorolac 30 MG/ML VIAL IVP (09:36)
[2025-05-29] MEDS: Normal Saline Flush 10 ML SYR IVP (09:37)
--- NOTE | 2025-05-29 10:10 | W.NUTRFU ---
Date of service: 05/29/25 Time of Service: 10:10 Nutrition Note NOTE: Consult received re: pancreatitis and LF diet education. PT admitted for pain control/surgical consult for acute pancreatitis. Was cautious with liquid diet - did like the broth. I modified regular diet order at dinner last night to lowfat this morning in congruence with education given. No significant nutrition-related past medical hx other than class II obesity per current BMI . Calcium lab was low -suggest checking vitamin D level as no at home supps and at risk for deficiency d/t obesity. Education given uesterday briefly on LF diet and increase if desired to tolerance as labs improve (lipase at 1400 yesterday). Recommend wt loss and nutrition outpatient services as patient feels the desire. Time Spent in Nutritional Counseling and Treatment: 10 min
--- NOTE | 2025-05-29 13:02 | DSE_ITS ---
Date of service: 05/29/25 Time of Service: 13:02 DS: Diagnosis Discharge Diagnosis (1) Acute pancreatitis: Status: Acute Discharge Plan Disposition Patient Disposition: Home Condition: Good Discharge Details Reason For Visit: Pancreatitis Admit Date/Time: 05/27/25 20:58 Admit Provider: Hal Steiner Attending Provider: Hal Steiner [facility] Hospital Course: Patient initially presented with worsening abdomonal pain after being seen at [facility] the day prior. However, while there her lipase was not elevated, and it was found to be elevated up to 1000 in the ED. She had MRCP that did not show any stones, but showed concern for acalculous cholecystitis. Patient was seen by general surgery who did not feel the patient required surgical intervention, but recommended outpatient referral to follow-up on her gallbladder. While patient was here she had her diet advanced and tolerated regular diet without difficutly. At which time it was determined that the patient was stable fo discharge. Home Meds and New Rx's Prescriptions: New ondansetron HCl 4 mg tablet 4 mg PO Q8H PRN4 Days Qty: 10 0RF tramadol 50 mg tablet 50 mg PO Q8H PRNQty: 10 0RF Continued desog-e.estradiol/e.estradiol [Volnea (28)] 0.15-0.02 mgx21 /0.01 mg x 5 tablet 1 tab PO DAILY Patient Comments: TAKE ONE TABLET BY MOUTH EVERY DAY No Action methocarbamol 500 mg tablet 500 mg PO TID meloxicam 7.5 mg tablet 7.5 mg PO DAILY Patient Comments: TAKE ONE TABLET BY MOUTH EVERY DAY WITH FOOD Discharge Instructions Referrals: Nikki Collado MD [ [facility] STAFF PHYSICIAN, Surgery] Referral Note: f/u inflamed gallbladder Activity:: Activity as Tolerated Equipment/Supplies:: No Equipment Needed Diet:: As Tolerated Discharge Orders Discharge Orders: Discharge Order (Routine); Ordered 05/29/25 Ordered By: Telly Bond DS: Summary Time Spent with Patient providing and/or coordinating discharge services: Greater than 30 minutes Status at Discharge Functional status at discharge: independent ambulation Overall status at discharge: patient is back to baseline Mental Status: mental status grossly normal Speech and Movement: speech and movement normal Mood: congruent mood Affect: normal affect Quality:SDOH Health Related Social Needs: Health related social needs house/econ circumstance Health related social needs details Pt visits food she lf as necessary Health related social needs details: Pt visits food shelf as necessary Exam Narrative Exam Narrative: well appearing female in no acute distress, AOx4, heart RRR, lungs CTAB, abdomen with mild tenderness to LUQ Psych Mental Status: mental status grossly normal Speech and Movement: speech and movement normal Mood: congruent mood Affect: normal affect DS: Data Vitals/I&O Vitals and I&O: Vital Signs Temperature 97.9 F 05/29/25 08:20 Temperature Source Temporal Artery Scan 05/29/25 08:20 Pulse 84 05/29/25 08:20 Pulse Rhythm Regular 05/27/25 21:49 Respiratory Rate 14 05/29/25 08:20 Respiratory Effort Normal 05/27/25 21:49 Respiratory Depth Normal 05/27/25 21:49 Respiratory Pattern Normal 05/27/25 21:49 Blood Pressure 106/66 05/29/25 08:20 Blood Pressure Mean 79 05/29/25 08:20 Pulse Oximetry 95 05/29/25 08:20 Oxygen Delivery Method Room Air 05/29/25 08:20 Oxygen Flow Rate 0 05/29/25 08:20 Pain Level 6 05/29/25 09:36 Intake & Output 05/28/25 05/29/25 05/29/25 17:59 05:59 17:59 Intake Total 1360.0 / 1360.0 3347.5 / 4707.5 720 / 720 Balance 1360.0 / 1360.0 3347.5 / 4707.5 720 / 720 Weight 218 lb 4.122 oz Intake: IV 1000.0 / 1000.0 3347.5 / 4347.5 Oral 360 / 360 720 / 720 Other: Urine Color Yellow Urine Appearance Clear Comment voiding independently. PFSH All Active Problems (Updated 05/27/25 @ 20:54 by MELISA Francis) Acute pancreatitis (Acute) Social History Smoking/Tobacco Use Status: Current every day Tobacco Type: e-cigarettes Smoking risk assessment performed?: Yes Alcohol Intake: current Alcohol Intake frequency: holidays/special occasions only Substance use type: does not use Housing: house Do you feel safe at home: Yes Do you feel safe in your relationship?: Yes Time Spent with Patient Time Spent with Patient: <45 minutes Time was spent: preparing to see the patient(eg.review tests), obtaining and/or reviewing separately otained hiistory, ordering medications,tests, procedures, referring, communicating with other health home care coordinator, indepentently interpreting results, counseling the patient and care coordination
== END 2025-05-29 13:42 | disposition home or self-care (01) ==
LOC: ER 20:54 → MS 05-28 03:53
PROVIDERS: Admitting Provider Hospitalist; Emergency Provider Physician Assistant; PCP Specialist/Technologist Athletic Trainer; Responsible Provider Family Medicine; Visit Provider Hospitalist
DX: K85.90 Acute pancreatitis without necrosis or infection, unspecified (principal); F17.290 Nicotine dependence, other tobacco product, uncomplicated; K81.9 Cholecystitis, unspecified
CPT/HCPCS: 00123; 36415; 76705; 80053; 81025; 83690; 93005; 96361; 96365; 96375; 99285; 74181; 81003; 83605; 83735; 84478; 84484; 85025; 85379; 93010; 99222; 99233; 99238; G0378; J0131; J1171; J1885; J2405